=== PATIENT | female | born 1985 ===

== ENCOUNTER 2024-11-16 11:15 | Inpatient (IN) | payer OTHER ==
[~2024-11-16] VITALS: Ht 162.6 cm; Wt 83.9 kg
[2024-11-16] MEDS ORDERED: ZOLOFT100 MG (14:13)
[2024-11-16] MEDS ORDERED: CRYSELLE-28 TA1 EACH (14:14)
[2024-11-16] MEDS ORDERED: HEMAPLEX (14:14)
[2024-11-16] MEDS ORDERED: MELATONIN10 M2 (14:15)
[2024-11-22] MEDS ORDERED: METRONIDAZOLE/SODIUM CHLORIDE 500 MG/100 ML PIGGYBACK IV ONE (10:14)
[2024-11-22] MEDS ORDERED: CEFTRIAXONE SODIUM 2,000 MG VIAL ONE (10:14)
[2024-11-22] MEDS ORDERED: VISTASEAL DUAL APPICATOR 1 EACH APPL TOP ONE (12:30)
[2024-11-22] MEDS ORDERED: BUPIVACAINE HCL/MPF 0.5% 30ML VIAL ONE (12:30)
[2024-11-22] MEDS ORDERED: LIDOCAINE HCL 1%/EPINEPHRINE 20ML VIAL IJ ONE (12:30)
[2024-11-22] MEDS ORDERED: POVIDONE-IODINE 118 ML BOTT TOP ONE (12:30)
[2024-11-22] MEDS ORDERED: THROMBIN,HU/FIBRINOGEN/CALCIUM 10 ML SYRINGE TOP ONE (12:31)
[2024-11-22] MEDS ORDERED: SUGAMMADEX SODIUM 200 MG/2 ML VIAL IV ONE (15:48)
[2024-11-22] MEDS ORDERED: RINGERS SOLUTION,LACTATED 1,000 ML IV SCH (17:00)
[2024-11-22] MEDS ORDERED: GABAPENTIN 100 MG CAPSULE PO SCH (17:00)
[2024-11-22] MEDS ORDERED: KETOROLAC TROMETHAMINE 30 MG VIAL ONE (17:29)
[2024-11-22] MEDS ORDERED: KETOROLAC TROMETHAMINE 30 MG VIAL IV SCH (18:00)
[2024-11-22] MEDS ORDERED: ACETAMINOPHEN 325 MG TABLET PO SCH (18:00)
[2024-11-22] MEDS ORDERED: ONDANSETRON HCL 2 MG/ML VIAL IV SCH (18:00)
[2024-11-22 18:28] LABS: BASO % 0.2 % (0.1-1.2); EOS # 0.01 (0.04-0.54); EOS % 0.1 % (0.7-7.0); LYMPH # 1.10 (1.18-3.74); LYMPH % 6.6 % (19.3-53.1); MEAN PLATELET VOLUME 8.30 fl (9.4-12.4); MONO # 0.92 (0.24-0.82); MONO % 5.5 % (4.7-12.5); NEUT # 14.60 (1.56-6.13); NEUT % 87.0 % (34.0-71.1); RED CELL DISTRIBUTION WIDTH 14.6 % (11.6-14.4)
[2024-11-22 19:11] LABS: BUN CREA RATIO 11.0 (7.0-25.0); CREATININE SERUM 0.87 mg/dL (0.55-1.02); GFR 72.49; GLUCOSE FASTING 128.0 mg/dL (65-100); OSMOLALITY SERUM 280.0 MOSM/KG (275-295)
[2024-11-22] MEDS ORDERED: GABAPENTIN 100 MG CAPSULE PO ONE (19:57)
[2024-11-22] MEDS ORDERED: ACETAMINOPHEN 325 MG TABLET PO ONE (19:57)
[2024-11-22 22:36] LABS: BASO % 0.2 % (0.1-1.2); EOS # 0.01 (0.04-0.54); EOS % 0.1 % (0.7-7.0); LYMPH # 1.28 (1.18-3.74); LYMPH % 8.3 % (19.3-53.1); MEAN PLATELET VOLUME 8.60 fl (9.4-12.4); MONO # 1.00 (0.24-0.82); MONO % 6.5 % (4.7-12.5); NEUT # 13.00 (1.56-6.13); NEUT % 84.4 % (34.0-71.1); RED CELL DISTRIBUTION WIDTH 14.6 % (11.6-14.4)
[2024-11-22 23:41] VITALS: BP 127/81; O2SAT 96
[2024-11-23 06:42] LABS: BASO % 0.5 % (0.1-1.2); EOS # 0.10 (0.04-0.54); EOS % 0.9 % (0.7-7.0); LYMPH # 2.11 (1.18-3.74); LYMPH % 18.8 % (19.3-53.1); MEAN PLATELET VOLUME 8.80 fl (9.4-12.4); MONO # 1.01 (0.24-0.82); MONO % 9.0 % (4.7-12.5); NEUT # 7.88 (1.56-6.13); NEUT % 70.4 % (34.0-71.1); RED CELL DISTRIBUTION WIDTH 14.4 % (11.6-14.4)
[2024-11-23 07:04] LABS: BUN CREA RATIO 10.0 (7.0-25.0); CREATININE SERUM 0.78 mg/dL (0.55-1.02); GFR 82.22; GLUCOSE FASTING 80.0 mg/dL (65-100); OSMOLALITY SERUM 279.0 MOSM/KG (275-295)
[2024-11-23 08:00] VITALS: BP 123/82; O2SAT 99
[2024-11-23] MEDS ORDERED: SERTRALINE HCL 100 MG TABLET PO SCH (09:00)
[2024-11-23 16:46] VITALS: BP 127/81; O2SAT 99
== END 2024-11-23 19:59 | disposition home or self-care (01) | DRG 743 ==
LOC: SURH 11-22 07:00 → SURG 11-22 09:00 → O/R 11-22 09:00 → SURH 11-22 11:15 → SURG 11-22 22:03
PROVIDERS: Student in an Organized Health Care Education/Training Program; Surgery; Urology; ADMIT Obstetrics & Gynecology Gynecology; ATTEND Obstetrics & Gynecology Gynecology
PROC: 0DNW4ZZ Release Peritoneum, Percutaneous Endoscopic Approach (ICD-10-PCS; 2024-11-22)
PROC: 0TN64ZZ Release Right Ureter, Percutaneous Endoscopic Approach (ICD-10-PCS; 2024-11-22)
PROC: 0DBW4ZZ Excision of Peritoneum, Percutaneous Endoscopic Approach (ICD-10-PCS; 2024-11-22)
PROC: 0DTJ4ZZ Resection of Appendix, Percutaneous Endoscopic Approach (ICD-10-PCS; 2024-11-22)
PROC: 0DTH4ZZ Resection of Cecum, Percutaneous Endoscopic Approach (ICD-10-PCS; 2024-11-22)
PROC: 0T788DZ Dilation of Bilateral Ureters with Intraluminal Device, Via Natural or Artificial Opening Endoscopic (ICD-10-PCS; 2024-11-22)
PROC: 4A1BXSH Monitoring of Gastrointestinal Vascular Perfusion using Indocyanine Green Dye, External Approach (ICD-10-PCS; 2024-11-22)
PROC: 0UT94ZZ Resection of Uterus, Percutaneous Endoscopic Approach (ICD-10-PCS; principal; 2024-11-22 07:00)
PROC: 0UT74ZZ Resection of Bilateral Fallopian Tubes, Percutaneous Endoscopic Approach (ICD-10-PCS; 2024-11-22 07:00)
PROC: 0UN14ZZ Release Left Ovary, Percutaneous Endoscopic Approach (ICD-10-PCS; 2024-11-22 07:00)
DX: D25.2 Subserosal leiomyoma of uterus (principal); N80.5 Endometriosis of intestine; N80.392 Deep endometriosis of the pelvic peritoneum, other specified sites; D50.0 Iron deficiency anemia secondary to blood loss (chronic)